=== PATIENT | female | born 1940 | race Asian ===

== ENCOUNTER 2017-01-24 10:45 | Inpatient (IN) | payer MEDICARE, OTHER ==
[~2017-01-24] VITALS: Ht 152.4 cm; Wt 57.6 kg
[~2017-01-24 10:45] MED LIST: AMLO1TAB13 PO; ATOR20TA86 PO; ESCI20TA PO; NITR.4 SL
[2017-01-24 11:00] VITALS: BP 156/92
[2017-01-24] MEDS ORDERED: HEPARIN SODIUM,PORCINE 5,000 UNITS/ML VIAL SQ SCH (12:30)
[2017-01-24] MEDS ORDERED: DOCUSATE SODIUM 283 MG/5 ML MINI-ENEMA PR PRN ×2 (12:30)
[2017-01-24 15:18] VITALS: BP 123/78
[2017-01-24 15:51] LABS: ADD UA MICROSCOPIC YES; APPEARANCE,URINE CLOUDY (CLEAR); GLUCOSE, URINE (UA) NEGATIVE (NEGATIVE); KETONES,URINE NEGATIVE (NEGATIVE); LEUKOCYTE ESTERASE ,URINE MODERATE (NEGATIVE); OCCULT BLOOD,URINE LARGE (NEGATIVE); PROTEIN,URINE TRACE (NEGATIVE)
[2017-01-24 15:56] LABS: RBC,URINE 26-50 /HPF (0-2); SQUAMOUS EPITHELIAL CELL,UR Few /LPF (None Seen); WBC,URINE 26-50 /HPF (0-5)
[2017-01-24] MEDS: HEPARIN SODIUM,PORCINE 5,000 UNITS/ML VIAL SQ SCH ×2 (16:30→23:33)
[2017-01-24] MEDS: DOCUSATE SODIUM 250 MG CAPSULE PO SCH (20:50)
[2017-01-24] MEDS: ATORVASTATIN CALCIUM 20 MG TABLET PO SCH (20:50)
[2017-01-24] MEDS ORDERED: SENNA 187 MG TABLET PO SCH (21:00)
[2017-01-24] MEDS ORDERED: DOCUSATE SODIUM 100 MG CAPSULE PO SCH (21:00)
[2017-01-24] MEDS ORDERED: TEMAZEPAM 15 MG CAPSULE PO PRN (22:00)
[2017-01-24 23:25] VITALS: BP 147/97
[2017-01-25 07:10] VITALS: BP 143/76
[2017-01-25 07:14] LABS: BASOPHILS # (AUTO) 0.01 K/uL (0.00-0.20); BASOPHILS % (AUTO) 0.1 % (0.0-2.0); EOSINOPHILS # (AUTO) 0.27 K/uL (0.00-0.70); EOSINOPHILS % (AUTO) 3.07 % (1.0-6.0); HEMATOCRIT 37.2 % (36-46); HEMOGLOBIN 11.7 g/dL (12.0-16.0); LYMPHOCYTES # (AUTO) 1.5 K/uL (1.0-4.8); LYMPHOCYTES % (AUTO) 17.1 % (22.0-44.0); MEAN CORPUSCULAR HEMOGLOBIN 21.6 pg (26.0-34.0); MEAN CORPUSCULAR HGB CONC 31.3 G/dL (31.0-37.0); MEAN CORPUSCULAR VOLUME 69 fL (80-100); MONOCYTES # (AUTO) 0.4 K/uL (0.1-1.0); MONOCYTES % (AUTO) 4.4 % (2.0-9.0); NEUTROPHILS # (AUTO) 6.6 K/uL (1.8-7.7); NEUTROPHILS % (AUTO) 75.3 % (40.0-70.0); PLATELET COUNT (AUTO) 187 K/uL (150-450); RED BLOOD CELL COUNT(AUTO) 5.41 MIL/uL (4.00-5.20); RED CELL DISTRIBUTION WIDTH 14.2 % (11.5-14.5); WHITE BLOOD COUNT (AUTO) 8.8 K/uL (4.5-11.0)
[2017-01-25 07:45] LABS: ALANINE AMINOTRANSFERASE 30 U/L (12-78); ALBUMIN 3.5 g/dL (3.4-5.0); ANION GAP 11 mmol/L (8-16); ASPARTATE AMINOTRANSFERASE 21 U/L (15-37); BILIRUBIN,TOTAL 0.4 mg/dL (0.1-1.0); CALCIUM, TOTAL 10.5 mg/dL (8.8-10.5); CARBON DIOXIDE 27 mmol/L (22-29); CHLORIDE 107 mmol/L (98-107); CREATININE 0.84 mg/dL (0.60-1.30); GLOMERULAR FILTR. RATE CALC > 60 mL/min (>60); POTASSIUM 4.1 mmol/L (3.5-5.1); SODIUM SERUM 145 mmol/L (136-145); TOTAL PROTEIN, SERUM 8.2 g/dL (6.4-8.2); UREA NITROGEN, BLOOD 9 mg/dL (7-18)
[2017-01-25] MEDS: VALSARTAN 160 MG TABLET PO SCH (08:03)
[2017-01-25] MEDS: AmLODIPine BESYLATE 10 MG TABLET PO SCH (08:03)
[2017-01-25] MEDS: DOCUSATE SODIUM 250 MG CAPSULE PO SCH ×2 (08:03→20:15)
[2017-01-25] MEDS: PANTOPRAZOLE SODIUM 40 MG DR TABLET PO SCH (08:04)
[2017-01-25] MEDS: HEPARIN SODIUM,PORCINE 5,000 UNITS/ML VIAL SQ SCH ×2 (08:04→16:13)
[2017-01-25] MEDS: ESCITALOPRAM OXALATE 20 MG TABLET PO SCH (08:04)
[2017-01-25] MEDS: ASPIRIN 81 MG CHEWABLE TABLET PO SCH (08:04)
[2017-01-25] MEDS ORDERED: PHENYLEPHRINE/SHK LV/MIN OIL/PET 57 GM OINTMENT TP PRN (11:15)
[2017-01-25 13:35] VITALS: BP 109/61
[2017-01-25] MEDS ORDERED: MECLIZINE HCL 12.5 MG TABLET PO PRN (15:00)
[2017-01-25 16:21] VITALS: BP 121/67
[2017-01-25] MEDS: SENNA 187 MG TABLET PO SCH (20:15)
[2017-01-25] MEDS: ATORVASTATIN CALCIUM 20 MG TABLET PO SCH (20:15)
[2017-01-25 23:15] VITALS: BP 136/76
[2017-01-26 07:20] VITALS: BP 142/90
[2017-01-26] MEDS: HEPARIN SODIUM,PORCINE 5,000 UNITS/ML VIAL SQ SCH ×2 (08:00)
[2017-01-26] MEDS: ASPIRIN 81 MG CHEWABLE TABLET PO SCH (09:00)
[2017-01-26] MEDS ORDERED: GADOBUTROL 1 MMOL/ML 10 ML VIAL IVP ONE (09:52)
[2017-01-26] MEDS: PANTOPRAZOLE SODIUM 40 MG DR TABLET PO SCH (10:29)
[2017-01-26] MEDS: VALSARTAN 160 MG TABLET PO SCH (10:29)
[2017-01-26] MEDS: AmLODIPine BESYLATE 10 MG TABLET PO SCH (10:29)
[2017-01-26] MEDS: DOCUSATE SODIUM 250 MG CAPSULE PO SCH ×2 (10:29→20:16)
[2017-01-26] MEDS: ESCITALOPRAM OXALATE 20 MG TABLET PO SCH (10:29)
[2017-01-26] MEDS: PHENYLEPHRINE/SHK LV/MIN OIL/PET 57 GM OINTMENT TP SCH ×2 (10:31→20:16)
[2017-01-26 15:40] VITALS: BP 118/66
[2017-01-26] MEDS: ACETAMINOPHEN 325 MG TABLET PO PRN (18:41)
[2017-01-26] MEDS: ATORVASTATIN CALCIUM 20 MG TABLET PO SCH (20:16)
[2017-01-26] MEDS: SENNA 187 MG TABLET PO SCH (20:16)
[2017-01-27 01:47] VITALS: BP 133/77
[2017-01-27 07:15] VITALS: BP 142/72
[2017-01-27] MEDS: VALSARTAN 160 MG TABLET PO SCH (07:47)
[2017-01-27] MEDS: ESCITALOPRAM OXALATE 20 MG TABLET PO SCH (07:47)
[2017-01-27] MEDS: DOCUSATE SODIUM 250 MG CAPSULE PO SCH ×2 (07:47→21:15)
[2017-01-27] MEDS: AmLODIPine BESYLATE 10 MG TABLET PO SCH (07:48)
[2017-01-27] MEDS: PANTOPRAZOLE SODIUM 40 MG DR TABLET PO SCH (07:48)
[2017-01-27] MEDS: PHENYLEPHRINE/SHK LV/MIN OIL/PET 57 GM OINTMENT TP SCH ×2 (07:48→21:17)
[2017-01-27] MEDS: ACETAMINOPHEN 325 MG TABLET PO PRN ×2 (09:49→14:33)
[2017-01-27 15:33] VITALS: BP 117/71
[2017-01-27] MEDS ORDERED: 0.9% SODIUM CHLORIDE 10 ML SYRINGE IVP SCH (16:00)
[2017-01-27] MEDS: SENNA 187 MG TABLET PO SCH (21:15)
[2017-01-27] MEDS: ATORVASTATIN CALCIUM 20 MG TABLET PO SCH (21:15)
[2017-01-28 00:54] VITALS: BP 136/81
[2017-01-28 07:50] VITALS: BP 116/68
[2017-01-28] MEDS: LEVOFLOXACIN 500 MG TABLET PO SCH (08:10)
[2017-01-28] MEDS: PANTOPRAZOLE SODIUM 40 MG DR TABLET PO SCH (08:10)
[2017-01-28] MEDS: ESCITALOPRAM OXALATE 20 MG TABLET PO SCH (08:10)
[2017-01-28] MEDS: DOCUSATE SODIUM 250 MG CAPSULE PO SCH ×2 (08:10→20:25)
[2017-01-28] MEDS: AmLODIPine BESYLATE 10 MG TABLET PO SCH (08:11)
[2017-01-28] MEDS: VALSARTAN 160 MG TABLET PO SCH (08:11)
[2017-01-28] MEDS: PHENYLEPHRINE/SHK LV/MIN OIL/PET 57 GM OINTMENT TP SCH ×2 (11:33→20:26)
[2017-01-28 13:38] VITALS: BP 114/69
[2017-01-28] MEDS: ACETAMINOPHEN 325 MG TABLET PO PRN (13:38)
[2017-01-28 15:03] VITALS: BP 116/70
[2017-01-28] MEDS: ATORVASTATIN CALCIUM 20 MG TABLET PO SCH (20:25)
[2017-01-28] MEDS: SENNA 187 MG TABLET PO SCH (20:25)
[2017-01-29] VITALS: BP 133/79
[2017-01-29 07:15] LABS: BASOPHILS # (AUTO) 0.01 K/uL (0.00-0.20); BASOPHILS % (AUTO) 0.2 % (0.0-2.0); EOSINOPHILS # (AUTO) 0.25 K/uL (0.00-0.70); EOSINOPHILS % (AUTO) 6.19 % (1.0-6.0); HEMATOCRIT 35.4 % (36-46); LYMPHOCYTES # (AUTO) 1.2 K/uL (1.0-4.8); LYMPHOCYTES % (AUTO) 30.5 % (22.0-44.0); MEAN CORPUSCULAR HEMOGLOBIN 21.5 pg (26.0-34.0); MEAN CORPUSCULAR HGB CONC 31.1 G/dL (31.0-37.0); MEAN CORPUSCULAR VOLUME 69 fL (80-100); MONOCYTES # (AUTO) 0.4 K/uL (0.1-1.0); MONOCYTES % (AUTO) 10.8 % (2.0-9.0); NEUTROPHILS # (AUTO) 2.1 K/uL (1.8-7.7); NEUTROPHILS % (AUTO) 52.3 % (40.0-70.0); PLATELET COUNT (AUTO) 178 K/uL (150-450); RED BLOOD CELL COUNT(AUTO) 5.13 MIL/uL (4.00-5.20); RED CELL DISTRIBUTION WIDTH 14.6 % (11.5-14.5)
[2017-01-29 07:38] VITALS: BP 138/78
[2017-01-29] MEDS: PANTOPRAZOLE SODIUM 40 MG DR TABLET PO SCH (08:00)
[2017-01-29] MEDS: DOCUSATE SODIUM 250 MG CAPSULE PO SCH ×2 (08:00→21:28)
[2017-01-29] MEDS: AmLODIPine BESYLATE 10 MG TABLET PO SCH (08:00)
[2017-01-29] MEDS: ESCITALOPRAM OXALATE 20 MG TABLET PO SCH (08:00)
[2017-01-29] MEDS: LEVOFLOXACIN 500 MG TABLET PO SCH (08:00)
[2017-01-29] MEDS: VALSARTAN 160 MG TABLET PO SCH (08:00)
[2017-01-29] MEDS: PHENYLEPHRINE/SHK LV/MIN OIL/PET 57 GM OINTMENT TP SCH ×2 (08:01→21:28)
[2017-01-29 10:19] LABS: RBC MORPHOLOGY COMMENT ABNORMAL RBC MORPH
[2017-01-29] MEDS: ASPIRIN 81 MG CHEWABLE TABLET PO SCH (13:46)
[2017-01-29 15:58] VITALS: BP 132/75
[2017-01-29] MEDS: ACETAMINOPHEN 325 MG TABLET PO PRN (18:39)
[2017-01-29] MEDS: SENNA 187 MG TABLET PO SCH (21:27)
[2017-01-29] MEDS: LACTOBACILLUS ACIDOPHILUS/BULGARICUS TABLET PO SCH (21:28)
[2017-01-29] MEDS: ATORVASTATIN CALCIUM 20 MG TABLET PO SCH (21:28)
[2017-01-30] VITALS: BP 127/78
[2017-01-30 07:00] VITALS: BP 146/79
[2017-01-30] MEDS: LEVOFLOXACIN 250 MG TABLET PO SCH (08:08)
[2017-01-30] MEDS: PANTOPRAZOLE SODIUM 40 MG DR TABLET PO SCH (08:08)
[2017-01-30] MEDS: VALSARTAN 160 MG TABLET PO SCH (08:08)
[2017-01-30] MEDS: LACTOBACILLUS ACIDOPHILUS/BULGARICUS TABLET PO SCH ×2 (08:08→21:03)
[2017-01-30] MEDS: ASPIRIN 81 MG CHEWABLE TABLET PO SCH (08:08)
[2017-01-30] MEDS: DOCUSATE SODIUM 250 MG CAPSULE PO SCH ×2 (08:08→21:03)
[2017-01-30] MEDS: MULTIVITAMINS WITH MINERALS, THERAPEUTIC TABLET PO SCH (08:08)
[2017-01-30] MEDS: ESCITALOPRAM OXALATE 20 MG TABLET PO SCH (08:09)
[2017-01-30] MEDS: AmLODIPine BESYLATE 10 MG TABLET PO SCH (08:09)
[2017-01-30] MEDS: ACETAMINOPHEN 325 MG TABLET PO PRN (09:54)
[2017-01-30 15:02] VITALS: BP 135/81
[2017-01-30] MEDS: CHOLECALCIFEROL (VIT D3) 1,000 UNITS TABLET PO SCH (15:14)
[2017-01-30] MEDS: SENNA 187 MG TABLET PO SCH (21:03)
[2017-01-30] MEDS: ATORVASTATIN CALCIUM 20 MG TABLET PO SCH (21:03)
[2017-01-31 02:35] VITALS: BP 138/78
[2017-01-31] MEDS: ACETAMINOPHEN 325 MG TABLET PO PRN (04:00)
[2017-01-31 07:01] VITALS: BP 119/82
[2017-01-31] MEDS: CHOLECALCIFEROL (VIT D3) 1,000 UNITS TABLET PO SCH (07:28)
[2017-01-31] MEDS: LACTOBACILLUS ACIDOPHILUS/BULGARICUS TABLET PO SCH ×2 (07:28→20:23)
[2017-01-31] MEDS: PANTOPRAZOLE SODIUM 40 MG DR TABLET PO SCH (07:29)
[2017-01-31] MEDS: ASPIRIN 81 MG CHEWABLE TABLET PO SCH (07:29)
[2017-01-31] MEDS: VALSARTAN 160 MG TABLET PO SCH (07:29)
[2017-01-31] MEDS: AmLODIPine BESYLATE 10 MG TABLET PO SCH (07:29)
[2017-01-31] MEDS: DOCUSATE SODIUM 250 MG CAPSULE PO SCH ×2 (07:29→20:23)
[2017-01-31] MEDS: ESCITALOPRAM OXALATE 20 MG TABLET PO SCH (07:29)
[2017-01-31] MEDS: MULTIVITAMINS WITH MINERALS, THERAPEUTIC TABLET PO SCH (07:29)
[2017-01-31] MEDS: LEVOFLOXACIN 250 MG TABLET PO SCH (07:29)
[2017-01-31 15:09] VITALS: BP 135/68
[2017-01-31] MEDS: SENNA 187 MG TABLET PO SCH (20:23)
[2017-01-31] MEDS: ATORVASTATIN CALCIUM 20 MG TABLET PO SCH (20:23)
[2017-02-01 04:00] VITALS: BP 148/75
[2017-02-01 07:30] VITALS: BP 154/84
[2017-02-01] MEDS: CHOLECALCIFEROL (VIT D3) 1,000 UNITS TABLET PO SCH (08:44)
[2017-02-01] MEDS: LEVOFLOXACIN 250 MG TABLET PO SCH (08:44)
[2017-02-01] MEDS: DOCUSATE SODIUM 250 MG CAPSULE PO SCH ×2 (08:44→20:01)
[2017-02-01] MEDS: PANTOPRAZOLE SODIUM 40 MG DR TABLET PO SCH (08:44)
[2017-02-01] MEDS: ESCITALOPRAM OXALATE 20 MG TABLET PO SCH (08:44)
[2017-02-01] MEDS: LACTOBACILLUS ACIDOPHILUS/BULGARICUS TABLET PO SCH ×2 (08:44→20:00)
[2017-02-01] MEDS: MULTIVITAMINS WITH MINERALS, THERAPEUTIC TABLET PO SCH (08:44)
[2017-02-01] MEDS: AmLODIPine BESYLATE 10 MG TABLET PO SCH (08:44)
[2017-02-01] MEDS: VALSARTAN 160 MG TABLET PO SCH (08:44)
[2017-02-01] MEDS: ASPIRIN 81 MG CHEWABLE TABLET PO SCH (08:45)
[2017-02-01] MEDS: ACETAMINOPHEN 325 MG TABLET PO PRN (09:32)
[2017-02-01 10:32] VITALS: BP 143/85
[2017-02-01 15:15] VITALS: BP 117/75
[2017-02-01] MEDS: SENNA 187 MG TABLET PO SCH (20:01)
[2017-02-01] MEDS: ATORVASTATIN CALCIUM 20 MG TABLET PO SCH (20:01)
[2017-02-02 00:22] VITALS: BP 145/79
[2017-02-02 07:58] VITALS: BP 143/74
[2017-02-02] MEDS: MULTIVITAMINS WITH MINERALS, THERAPEUTIC TABLET PO SCH (08:53)
[2017-02-02] MEDS: CHOLECALCIFEROL (VIT D3) 1,000 UNITS TABLET PO SCH (08:53)
[2017-02-02] MEDS: ESCITALOPRAM OXALATE 20 MG TABLET PO SCH (08:53)
[2017-02-02] MEDS: LEVOFLOXACIN 250 MG TABLET PO SCH (08:53)
[2017-02-02] MEDS: DOCUSATE SODIUM 250 MG CAPSULE PO SCH ×2 (08:53→20:31)
[2017-02-02] MEDS: PANTOPRAZOLE SODIUM 40 MG DR TABLET PO SCH (08:54)
[2017-02-02] MEDS: ASPIRIN 81 MG CHEWABLE TABLET PO SCH (08:54)
[2017-02-02] MEDS: AmLODIPine BESYLATE 10 MG TABLET PO SCH (08:54)
[2017-02-02] MEDS: LACTOBACILLUS ACIDOPHILUS/BULGARICUS TABLET PO SCH ×2 (08:54→20:31)
[2017-02-02] MEDS: VALSARTAN 160 MG TABLET PO SCH (08:54)
[2017-02-02 15:10] VITALS: BP 126/85
[2017-02-02] MEDS: ATORVASTATIN CALCIUM 20 MG TABLET PO SCH (20:31)
[2017-02-02] MEDS: SENNA 187 MG TABLET PO SCH (20:31)
[2017-02-02 23:58] VITALS: BP 132/77
[2017-02-03 07:00] VITALS: BP 134/81
[2017-02-03] MEDS: ASPIRIN 81 MG CHEWABLE TABLET PO SCH (08:49)
[2017-02-03] MEDS: MULTIVITAMINS WITH MINERALS, THERAPEUTIC TABLET PO SCH (08:50)
[2017-02-03] MEDS: ESCITALOPRAM OXALATE 20 MG TABLET PO SCH (08:50)
[2017-02-03] MEDS: DOCUSATE SODIUM 250 MG CAPSULE PO SCH ×2 (08:50→20:47)
[2017-02-03] MEDS: LACTOBACILLUS ACIDOPHILUS/BULGARICUS TABLET PO SCH ×2 (08:50→20:48)
[2017-02-03] MEDS: PANTOPRAZOLE SODIUM 40 MG DR TABLET PO SCH (08:50)
[2017-02-03] MEDS: VALSARTAN 160 MG TABLET PO SCH (08:50)
[2017-02-03] MEDS: AmLODIPine BESYLATE 10 MG TABLET PO SCH (08:50)
[2017-02-03] MEDS: CHOLECALCIFEROL (VIT D3) 1,000 UNITS TABLET PO SCH (08:50)
[2017-02-03 15:02] VITALS: BP 126/65
[2017-02-03] MEDS: ATORVASTATIN CALCIUM 20 MG TABLET PO SCH (20:47)
[2017-02-03] MEDS: SENNA 187 MG TABLET PO SCH (20:47)
[2017-02-04 01:38] VITALS: BP 130/77
[2017-02-04] MEDS: ACETAMINOPHEN 325 MG TABLET PO PRN ×2 (01:38→09:06)
[2017-02-04 07:22] VITALS: BP 144/74
[2017-02-04] MEDS: MULTIVITAMINS WITH MINERALS, THERAPEUTIC TABLET PO SCH (07:38)
[2017-02-04] MEDS: PANTOPRAZOLE SODIUM 40 MG DR TABLET PO SCH (07:38)
[2017-02-04] MEDS: CHOLECALCIFEROL (VIT D3) 1,000 UNITS TABLET PO SCH (07:38)
[2017-02-04] MEDS: ESCITALOPRAM OXALATE 20 MG TABLET PO SCH (07:38)
[2017-02-04] MEDS: AmLODIPine BESYLATE 10 MG TABLET PO SCH (07:38)
[2017-02-04] MEDS: VALSARTAN 160 MG TABLET PO SCH (07:38)
[2017-02-04] MEDS: LACTOBACILLUS ACIDOPHILUS/BULGARICUS TABLET PO SCH ×2 (07:38→20:17)
[2017-02-04] MEDS: DOCUSATE SODIUM 250 MG CAPSULE PO SCH ×2 (07:38→20:17)
[2017-02-04] MEDS: ASPIRIN 81 MG CHEWABLE TABLET PO SCH (07:38)
[2017-02-04 16:10] VITALS: BP 116/70
[2017-02-04] MEDS: ATORVASTATIN CALCIUM 20 MG TABLET PO SCH (20:16)
[2017-02-04] MEDS: SENNA 187 MG TABLET PO SCH (20:17)
[2017-02-04 23:25] VITALS: BP 137/67
[2017-02-05 07:30] VITALS: BP 134/77
[2017-02-05 08:22] VITALS: BP 134/77
[2017-02-05] MEDS: ACETAMINOPHEN 325 MG TABLET PO PRN (08:24)
[2017-02-05] MEDS: CHOLECALCIFEROL (VIT D3) 1,000 UNITS TABLET PO SCH (08:25)
[2017-02-05] MEDS: MULTIVITAMINS WITH MINERALS, THERAPEUTIC TABLET PO SCH (08:26)
[2017-02-05] MEDS: PANTOPRAZOLE SODIUM 40 MG DR TABLET PO SCH (08:26)
[2017-02-05] MEDS: ASPIRIN 81 MG CHEWABLE TABLET PO SCH (08:26)
[2017-02-05] MEDS: DOCUSATE SODIUM 250 MG CAPSULE PO SCH ×2 (08:26→20:32)
[2017-02-05] MEDS: ESCITALOPRAM OXALATE 20 MG TABLET PO SCH (08:27)
[2017-02-05] MEDS: AmLODIPine BESYLATE 10 MG TABLET PO SCH (08:29)
[2017-02-05] MEDS: VALSARTAN 160 MG TABLET PO SCH (08:29)
[2017-02-05] MEDS: LACTOBACILLUS ACIDOPHILUS/BULGARICUS TABLET PO SCH ×2 (08:30→20:32)
[2017-02-05 15:05] VITALS: BP 125/76
[2017-02-05] MEDS: ATORVASTATIN CALCIUM 20 MG TABLET PO SCH (20:32)
[2017-02-05] MEDS: SENNA 187 MG TABLET PO SCH (20:32)
[2017-02-06 01:47] VITALS: BP 148/74
[2017-02-06 07:33] VITALS: BP 138/71
[2017-02-06] MEDS: ASPIRIN 81 MG CHEWABLE TABLET PO SCH (08:03)
[2017-02-06] MEDS: DOCUSATE SODIUM 250 MG CAPSULE PO SCH ×2 (08:03→20:23)
[2017-02-06] MEDS: VALSARTAN 160 MG TABLET PO SCH (08:04)
[2017-02-06] MEDS: LACTOBACILLUS ACIDOPHILUS/BULGARICUS TABLET PO SCH ×2 (08:05→20:24)
[2017-02-06] MEDS: MULTIVITAMINS WITH MINERALS, THERAPEUTIC TABLET PO SCH (08:06)
[2017-02-06] MEDS: AmLODIPine BESYLATE 10 MG TABLET PO SCH (08:06)
[2017-02-06] MEDS: PANTOPRAZOLE SODIUM 40 MG DR TABLET PO SCH (08:06)
[2017-02-06] MEDS: ESCITALOPRAM OXALATE 20 MG TABLET PO SCH (08:06)
[2017-02-06] MEDS: CHOLECALCIFEROL (VIT D3) 1,000 UNITS TABLET PO SCH (08:07)
[2017-02-06 15:14] LABS: APPEARANCE,URINE CLEAR (CLEAR); GLUCOSE, URINE (UA) NEGATIVE (NEGATIVE); KETONES,URINE NEGATIVE (NEGATIVE); LEUKOCYTE ESTERASE ,URINE NEGATIVE (NEGATIVE); OCCULT BLOOD,URINE NEGATIVE (NEGATIVE); PH,URINE 6.5 (5.0-8.0); PROTEIN,URINE NEGATIVE (NEGATIVE)
[2017-02-06 15:41] LABS: SQUAMOUS EPITHELIAL CELL,UR Few /LPF (None Seen)
[2017-02-06 15:42] LABS: RBC,URINE 0-2 /HPF (0-2)
[2017-02-06 15:43] LABS: TRANSITIONAL EPI CELLS,URINE Few /LPF (None Seen)
[2017-02-06 15:59] VITALS: BP 129/72
[2017-02-06] MEDS: ATORVASTATIN CALCIUM 20 MG TABLET PO SCH (20:23)
[2017-02-06] MEDS: SENNA 187 MG TABLET PO SCH (20:23)
[2017-02-06] MEDS: GuaiFENesin/D-METHORPHAN [SUGAR-FREE] 200-20MG/10 ML SYRUP UDCUP PO PRN (21:49)
[2017-02-07 04:00] VITALS: BP 135/78
[2017-02-07] MEDS: GuaiFENesin/D-METHORPHAN [SUGAR-FREE] 200-20MG/10 ML SYRUP UDCUP PO PRN ×3 (04:26→20:18)
[2017-02-07] MEDS: DOCUSATE SODIUM 250 MG CAPSULE PO SCH ×3 (07:49→20:18)
[2017-02-07] MEDS: LACTOBACILLUS ACIDOPHILUS/BULGARICUS TABLET PO SCH ×2 (07:49→20:18)
[2017-02-07] MEDS: VALSARTAN 160 MG TABLET PO SCH (07:49)
[2017-02-07] MEDS: ESCITALOPRAM OXALATE 20 MG TABLET PO SCH (07:49)
[2017-02-07] MEDS: CHOLECALCIFEROL (VIT D3) 1,000 UNITS TABLET PO SCH (07:49)
[2017-02-07] MEDS: AmLODIPine BESYLATE 10 MG TABLET PO SCH (07:49)
[2017-02-07] MEDS: MULTIVITAMINS WITH MINERALS, THERAPEUTIC TABLET PO SCH (07:49)
[2017-02-07] MEDS: PANTOPRAZOLE SODIUM 40 MG DR TABLET PO SCH (07:50)
[2017-02-07] MEDS: ASPIRIN 81 MG CHEWABLE TABLET PO SCH (07:50)
[2017-02-07 07:51] VITALS: BP 147/92
[2017-02-07] MEDS: DICLOFENAC SODIUM 1% 100 GM GEL [2GM] TP PRN (07:51)
[2017-02-07 16:35] VITALS: BP 116/76
[2017-02-07] MEDS: SENNA 187 MG TABLET PO SCH (20:18)
[2017-02-07] MEDS: ACETAMINOPHEN 325 MG TABLET PO PRN (20:18)
[2017-02-07] MEDS: ATORVASTATIN CALCIUM 20 MG TABLET PO SCH (20:18)
[2017-02-08 01:00] VITALS: BP 145/57
[2017-02-08] MEDS: GuaiFENesin/D-METHORPHAN [SUGAR-FREE] 200-20MG/10 ML SYRUP UDCUP PO PRN ×2 (01:34→08:42)
[2017-02-08 07:20] VITALS: BP 140/84
[2017-02-08] MEDS: ACETAMINOPHEN 325 MG TABLET PO PRN (07:27)
[2017-02-08 08:20] VITALS: BP 127/64
[2017-02-08] MEDS: ESCITALOPRAM OXALATE 20 MG TABLET PO SCH (08:43)
[2017-02-08] MEDS: DOCUSATE SODIUM 250 MG CAPSULE PO SCH ×2 (08:44→20:16)
[2017-02-08] MEDS: AmLODIPine BESYLATE 10 MG TABLET PO SCH (08:44)
[2017-02-08] MEDS: PANTOPRAZOLE SODIUM 40 MG DR TABLET PO SCH (08:44)
[2017-02-08] MEDS: MULTIVITAMINS WITH MINERALS, THERAPEUTIC TABLET PO SCH (08:44)
[2017-02-08] MEDS: LACTOBACILLUS ACIDOPHILUS/BULGARICUS TABLET PO SCH ×2 (08:45→20:16)
[2017-02-08] MEDS: VALSARTAN 160 MG TABLET PO SCH (08:45)
[2017-02-08] MEDS: CHOLECALCIFEROL (VIT D3) 1,000 UNITS TABLET PO SCH (08:45)
[2017-02-08] MEDS: ASPIRIN 81 MG CHEWABLE TABLET PO SCH (08:45)
[2017-02-08 16:25] VITALS: BP 139/86
[2017-02-08] MEDS: GuaiFENesin/D-METHORPHAN [SUGAR-FREE] 200-20MG/10 ML SYRUP UDCUP PO SCH ×2 (17:02→20:16)
[2017-02-08] MEDS: SENNA 187 MG TABLET PO SCH (20:16)
[2017-02-08] MEDS: ATORVASTATIN CALCIUM 20 MG TABLET PO SCH (20:16)
[2017-02-08] MEDS ORDERED: PHEN28OI6 TP (22:41)
[2017-02-08] MEDS ORDERED: VALS160T2 PO (22:41)
[2017-02-08] MEDS ORDERED: CHOL200016 PO (22:41)
[2017-02-08] MEDS ORDERED: MV-M1TAB2 PO (22:41)
[2017-02-08] MEDS ORDERED: DICL2100G TP (22:41)
[2017-02-08] MEDS ORDERED: DOCU250C91 PO (22:41)
[2017-02-08] MEDS ORDERED: MECL12.585 PO (22:41)
[2017-02-08] MEDS ORDERED: ASPI81TA39 PO (22:41)
[2017-02-08] MEDS ORDERED: AMLO-512 PO (22:41)
[2017-02-08] MEDS ORDERED: ATOR20TA86 PO (22:41)
[2017-02-08] MEDS ORDERED: ESCI10TA PO (22:41)
[2017-02-08] MEDS ORDERED: PANT40TA25 PO (22:41)
[2017-02-08] MEDS ORDERED: ACID1TAB8 PO (22:41)
[2017-02-08] MEDS ORDERED: DEXT15SY3 PO (22:41)
[2017-02-09 00:15] VITALS: BP 134/82
[2017-02-09 07:13] VITALS: BP 121/69
[2017-02-09] MEDS: CHOLECALCIFEROL (VIT D3) 1,000 UNITS TABLET PO SCH (08:10)
[2017-02-09] MEDS: GuaiFENesin/D-METHORPHAN [SUGAR-FREE] 200-20MG/10 ML SYRUP UDCUP PO SCH ×3 (08:10→20:27)
[2017-02-09] MEDS: LACTOBACILLUS ACIDOPHILUS/BULGARICUS TABLET PO SCH ×2 (08:10→20:28)
[2017-02-09] MEDS: MULTIVITAMINS WITH MINERALS, THERAPEUTIC TABLET PO SCH (08:10)
[2017-02-09] MEDS: AmLODIPine BESYLATE 10 MG TABLET PO SCH (08:11)
[2017-02-09] MEDS: DOCUSATE SODIUM 250 MG CAPSULE PO SCH ×2 (08:11→20:28)
[2017-02-09] MEDS: VALSARTAN 160 MG TABLET PO SCH (08:11)
[2017-02-09] MEDS: ASPIRIN 81 MG CHEWABLE TABLET PO SCH (08:11)
[2017-02-09] MEDS: ESCITALOPRAM OXALATE 20 MG TABLET PO SCH (08:11)
[2017-02-09] MEDS: DICLOFENAC SODIUM 1% 100 GM GEL [2GM] TP PRN (08:11)
[2017-02-09] MEDS: PANTOPRAZOLE SODIUM 40 MG DR TABLET PO SCH (08:11)
[2017-02-09 15:20] VITALS: BP 113/76
[2017-02-09] MEDS: SENNA 187 MG TABLET PO SCH (20:28)
[2017-02-09] MEDS: ATORVASTATIN CALCIUM 20 MG TABLET PO SCH (20:28)
[2017-02-09 23:50] VITALS: BP 126/77
[2017-02-10] MEDS: ACETAMINOPHEN 325 MG TABLET PO PRN (05:08)
[2017-02-10 07:45] VITALS: BP 124/82
[2017-02-10] MEDS: GuaiFENesin/D-METHORPHAN [SUGAR-FREE] 200-20MG/10 ML SYRUP UDCUP PO SCH (08:05)
[2017-02-10] MEDS: PANTOPRAZOLE SODIUM 40 MG DR TABLET PO SCH (08:05)
[2017-02-10] MEDS: LACTOBACILLUS ACIDOPHILUS/BULGARICUS TABLET PO SCH (08:05)
[2017-02-10] MEDS: ESCITALOPRAM OXALATE 20 MG TABLET PO SCH (08:06)
[2017-02-10] MEDS: AmLODIPine BESYLATE 10 MG TABLET PO SCH (08:06)
[2017-02-10] MEDS: CHOLECALCIFEROL (VIT D3) 1,000 UNITS TABLET PO SCH (08:06)
[2017-02-10] MEDS: DOCUSATE SODIUM 250 MG CAPSULE PO SCH (08:06)
[2017-02-10] MEDS: MULTIVITAMINS WITH MINERALS, THERAPEUTIC TABLET PO SCH (08:06)
[2017-02-10] MEDS: ASPIRIN 81 MG CHEWABLE TABLET PO SCH (08:06)
[2017-02-10] MEDS: VALSARTAN 160 MG TABLET PO SCH (08:07)
[2017-02-10] MEDS ORDERED: GUAIFDM PO (11:14)
== END 2017-02-10 14:28 | disposition home or self-care (01) | DRG 948 ==
LOC: 2WR 10:45
DX: R53.81 Other malaise (principal); N39.0 Urinary tract infection, site not specified; B19.10 Unspecified viral hepatitis B without hepatic coma; S09.90XA Unspecified injury of head, initial encounter; I10 Essential (primary) hypertension; S02.2XXA Fracture of nasal bones, initial encounter for closed fracture; D56.9 Thalassemia, unspecified; R42 Dizziness and giddiness; D72.819 Decreased white blood cell count, unspecified; W18.30XA Fall on same level, unspecified, initial encounter; D50.9 Iron deficiency anemia, unspecified; R05 Cough; E78.00 Pure hypercholesterolemia, unspecified; R26.9 Unspecified abnormalities of gait and mobility; R63.0 Anorexia; E78.5 Hyperlipidemia, unspecified; H54.7 Unspecified visual loss; R29.6 Repeated falls; Z80.9 Family history of malignant neoplasm, unspecified; F43.22 Adjustment disorder with anxiety; R51 Headache; R55 Syncope and collapse; Z88.8 Allergy status to other drugs, medicaments and biological substances; Z68.24 Body mass index [BMI] 24.0-24.9, adult; Y93.89 Activity, other specified; Y92.89 Other specified places as the place of occurrence of the external cause; Y99.8 Other external cause status
CPT/HCPCS: 70553; 71020; 82306; 87081; 87086; 92507; 92523; 97110; 97112; 97116; 97162; 97166; 97530; 97535; 99366; A9585; J1644

== ENCOUNTER 2018-03-10 12:04 | Inpatient (IN) | payer MEDICARE, OTHER ==
[~2018-03-10] VITALS: Ht 157.5 cm; Wt 60.2 kg
[~2018-03-10 12:04] MED LIST changes: +ACID1TAB8 PO; +AMLO-512 PO; -AMLO1TAB13 PO; +ASPI81TA39 PO; +CHOL200059 PO; +DEXT15SY3 PO; +DICL2100G TP; +DOCU250C91 PO; +ESCI10TA PO; -ESCI20TA PO; +GUAIFDM PO; +MV-M1TAB2 PO; -NITR.4 SL; +PANT40TA25 PO; +VALS160T2 PO
[2018-03-10 12:29] LABS: BASOPHILS % (AUTO) 0.1 % (0.0-2.0); EOSINOPHILS % (AUTO) 0 % (1.0-6.0); HEMOGLOBIN 11.5 g/dL (12.0-16.0); LYMPHOCYTES # (AUTO) 1.6 K/uL (1.0-4.8); LYMPHOCYTES % (AUTO) 13.8 % (22.0-44.0); MEAN CORPUSCULAR HEMOGLOBIN 21.1 pg (26.0-34.0); MEAN CORPUSCULAR VOLUME 68 fL (80-100); MONOCYTES # (AUTO) 0.7 K/uL (0.1-1.0); MONOCYTES % (AUTO) 6.5 % (2.0-9.0); NEUTROPHILS # (AUTO) 9.1 K/uL (1.8-7.7); NEUTROPHILS % (AUTO) 79.6 % (40.0-70.0); PLATELET COUNT (AUTO) 167 K/uL (150-450); RED BLOOD CELL COUNT(AUTO) 5.44 MIL/uL (4.00-5.20); RED CELL DISTRIBUTION WIDTH 14.5 % (11.5-14.5)
[2018-03-10 12:38] LABS: POTASSIUM 3.8 mmol/L (3.5-5.1)
[2018-03-10 12:39] LABS: CREATININE 0.91 mg/dL (0.60-1.30); PROTHROMBIN TIME 10.1 SEC (9.4-11.6)
[2018-03-10 12:43] LABS: ALBUMIN 3.8 g/dL (3.4-5.0); BILIRUBIN,TOTAL 0.7 mg/dL (0.1-1.0); TOTAL PROTEIN, SERUM 8.5 g/dL (6.4-8.2)
[2018-03-10] MEDS ORDERED: NICARDipine 20 MG/DEXT,ISO-OSM 200 ML IV PRN (12:48)
[2018-03-10] MEDS ORDERED: ONDANSETRON HCL 4 MG/2 ML VIAL IVP PRN ×2 (13:00→13:45)
[2018-03-10] MEDS ORDERED: 0.9% SODIUM CHLORIDE 10 ML SYRINGE IVP PRN (13:00)
[2018-03-10] MEDS ORDERED: SODIUM CHLORIDE 0.9% 1,000 ML IV ONE ×2 (13:00→14:00)
[2018-03-10] MEDS ORDERED: BISACODYL 10 MG RECTAL RECTAL SUPPOSITORY PR PRN (13:45)
[2018-03-10] MEDS ORDERED: HYDROCODONE/ACETAMINOPHEN 5-325 MG TABLET PO PRN (13:45)
[2018-03-10] MEDS ORDERED: MAGNESIUM HYDROXIDE SUSPENSION 30 ML UDCUP PO PRN (13:45)
[2018-03-10] MEDS ORDERED: ZOLPIDEM TARTRATE 5 MG TABLET PO PRN (13:45)
[2018-03-10] MEDS ORDERED: ACETAMINOPHEN 325 MG TABLET PO PRN (13:45)
[2018-03-10] MEDS ORDERED: MORPHINE SULFATE 4 MG/ML SYRINGE IVP PRN (13:45)
[2018-03-10 14:56] LABS: AMPHET/METH SCREEN,URINE NEGATIVE (NEGATIVE); BARBITURATE SCREEN, URINE NEGATIVE (NEGATIVE); BENZODIAZEPINES SCREEN,URINE NEGATIVE (NEGATIVE); CANNABINOID SCREEN,URINE NEGATIVE (NEGATIVE); COCAINE SCREEN,URINE NEGATIVE (NEGATIVE); METHADONE SCREEN, URINE NEGATIVE (NEGATIVE); OPIATE SCREEN,URINE NEGATIVE (NEGATIVE); PHENCYCLIDINE SCREEN,URINE NEGATIVE (NEGATIVE)
[2018-03-10 15:04] LABS: APPEARANCE,URINE CLEAR (CLEAR); BILIRUBIN,URINE NEGATIVE (NEGATIVE); GLUCOSE, URINE (UA) NEGATIVE (NEGATIVE); KETONES,URINE NEGATIVE (NEGATIVE); LEUKOCYTE ESTERASE ,URINE NEGATIVE (NEGATIVE); NITRATE,URINE NEGATIVE (NEGATIVE); OCCULT BLOOD,URINE SMALL (NEGATIVE); PROTEIN,URINE NEGATIVE (NEGATIVE); UROBILINOGEN,URINE 0.2 mg/dL (<=1.0)
[2018-03-10 15:14] LABS: BACTERIA,URINE Rare /HPF (None Seen); SQUAMOUS EPITHELIAL CELL,UR Few /LPF (None Seen); WBC,URINE 0-2 /HPF (0-5)
[2018-03-10 18:00] VITALS: BP 128/88
[2018-03-10 20:00] VITALS: BP 147/92
[2018-03-10] MEDS: ATORVASTATIN CALCIUM 20 MG TABLET PO SCH (20:55)
[2018-03-10] MEDS: DOCUSATE SODIUM 100 MG CAPSULE PO SCH (20:55)
[2018-03-10] MEDS: HydrALAZINE HCL 20 MG/ML VIAL IVP PRN (21:39)
[2018-03-11] VITALS: BP 129/72
[2018-03-11 04:00] VITALS: BP 157/58
[2018-03-11] MEDS ORDERED: SODIUM CHLORIDE 0.9% 250 ML IV ONE ×2 (04:35→06:17)
[2018-03-11 05:03] LABS: BASOPHILS % (AUTO) 0.2 % (0.0-2.0); EOSINOPHILS % (AUTO) 0.3 % (1.0-6.0); HEMATOCRIT 33.9 % (36-46); HEMOGLOBIN 10.7 g/dL (12.0-16.0); LYMPHOCYTES # (AUTO) 1.2 K/uL (1.0-4.8); LYMPHOCYTES % (AUTO) 12.8 % (22.0-44.0); MEAN CORPUSCULAR HEMOGLOBIN 21.2 pg (26.0-34.0); MEAN CORPUSCULAR HGB CONC 31.7 G/dL (31.0-37.0); MEAN CORPUSCULAR VOLUME 67 fL (80-100); MONOCYTES % (AUTO) 10.1 % (2.0-9.0); NEUTROPHILS # (AUTO) 7.5 K/uL (1.8-7.7); NEUTROPHILS % (AUTO) 76.6 % (40.0-70.0); PLATELET COUNT (AUTO) 155 K/uL (150-450); RED BLOOD CELL COUNT(AUTO) 5.08 MIL/uL (4.00-5.20); RED CELL DISTRIBUTION WIDTH 13.9 % (11.5-14.5)
[2018-03-11 05:11] LABS: ALANINE AMINOTRANSFERASE 30 U/L (12-78); ALBUMIN 3.3 g/dL (3.4-5.0); ALKALINE PHOSPHATASE 56 U/L (46-116); ANION GAP 7 mmol/L (8-16); ASPARTATE AMINOTRANSFERASE 35 U/L (15-37); BILIRUBIN,TOTAL 0.7 mg/dL (0.1-1.0); CALCIUM, TOTAL 9.6 mg/dL (8.8-10.5); CARBON DIOXIDE 25 mmol/L (22-29); CHLORIDE 108 mmol/L (98-107); CREATININE 0.78 mg/dL (0.60-1.30); GLUCOSE,RANDOM 101 mg/dL (70-110); SODIUM SERUM 140 mmol/L (136-145); TOTAL PROTEIN, SERUM 7.3 g/dL (6.4-8.2); UREA NITROGEN, BLOOD 11 mg/dL (7-18)
[2018-03-11 05:32] LABS: GLOMERULAR FILTR. RATE CALC > 60 mL/min (>60); POTASSIUM 2.5 mmol/L (3.5-5.1)
[2018-03-11] MEDS ORDERED: POTASSIUM CHL 10 MEQ/WATER 50 ML IV PRN ×3 (06:15)
[2018-03-11] MEDS: POTASSIUM CHL 10 MEQ/WATER 50 ML IV PRN ×7 (06:15→19:01)
[2018-03-11 08:00] VITALS: BP 142/87
[2018-03-11] MEDS ORDERED: GADOBUTROL 1 MMOL/ML 10 ML VIAL IVP ONE (08:18)
[2018-03-11] MEDS: PANTOPRAZOLE SODIUM 40 MG DR TABLET PO SCH (09:00)
[2018-03-11] MEDS: VALSARTAN 160 MG TABLET PO SCH (09:00)
[2018-03-11] MEDS: CHOLECALCIFEROL (VIT D3) 2,000 UNITS TABLET PO SCH (09:00)
[2018-03-11] MEDS: DOCUSATE SODIUM 100 MG CAPSULE PO SCH ×2 (09:00→20:36)
[2018-03-11] MEDS: AmLODIPine BESYLATE 10 MG TABLET PO SCH (09:00)
[2018-03-11] MEDS: HydrALAZINE HCL 20 MG/ML VIAL IVP PRN (11:25)
[2018-03-11 12:00] VITALS: BP 128/74
[2018-03-11 16:00] VITALS: BP 149/69
[2018-03-11] MEDS: ATORVASTATIN CALCIUM 20 MG TABLET PO SCH (20:35)
[2018-03-11] MEDS: POTASSIUM CHLORIDE 20 MEQ ER TABLET PO PRN (22:52)
[2018-03-12] VITALS (7 sets, daily range): BP systolic 141–165; BP diastolic 73–88
[2018-03-12] MEDS: HydrALAZINE HCL 20 MG/ML VIAL IVP PRN ×2 (00:09→17:56)
[2018-03-12] MEDS: PANTOPRAZOLE SODIUM 40 MG DR TABLET PO SCH (08:55)
[2018-03-12] MEDS: AmLODIPine BESYLATE 10 MG TABLET PO SCH (08:55)
[2018-03-12] MEDS: CHOLECALCIFEROL (VIT D3) 2,000 UNITS TABLET PO SCH (08:55)
[2018-03-12] MEDS: DOCUSATE SODIUM 100 MG CAPSULE PO SCH ×2 (08:56→21:55)
[2018-03-12] MEDS: VALSARTAN 160 MG TABLET PO SCH (08:56)
[2018-03-12] MEDS: ATORVASTATIN CALCIUM 20 MG TABLET PO SCH (21:55)
[2018-03-13 05:25] VITALS: BP 149/85
[2018-03-13 07:28] VITALS: BP 143/75
[2018-03-13 07:35] LABS: BASOPHILS % (AUTO) 0.4 % (0.0-2.0); EOSINOPHILS % (AUTO) 3.2 % (1.0-6.0); HEMATOCRIT 35.4 % (36-46); HEMOGLOBIN 11.1 g/dL (12.0-16.0); LYMPHOCYTES # (AUTO) 1.7 K/uL (1.0-4.8); LYMPHOCYTES % (AUTO) 25.6 % (22.0-44.0); MEAN CORPUSCULAR HEMOGLOBIN 21.2 pg (26.0-34.0); MEAN CORPUSCULAR HGB CONC 31.4 G/dL (31.0-37.0); MEAN CORPUSCULAR VOLUME 68 fL (80-100); MONOCYTES # (AUTO) 0.5 K/uL (0.1-1.0); MONOCYTES % (AUTO) 7.5 % (2.0-9.0); NEUTROPHILS # (AUTO) 4.1 K/uL (1.8-7.7); NEUTROPHILS % (AUTO) 63.3 % (40.0-70.0); PLATELET COUNT (AUTO) 163 K/uL (150-450); RED BLOOD CELL COUNT(AUTO) 5.24 MIL/uL (4.00-5.20); RED CELL DISTRIBUTION WIDTH 14.4 % (11.5-14.5)
[2018-03-13 07:42] LABS: ANION GAP 6 mmol/L (8-16); CALCIUM, TOTAL 10.1 mg/dL (8.8-10.5); CARBON DIOXIDE 26 mmol/L (22-29); CHLORIDE 110 mmol/L (98-107); CREATININE 0.73 mg/dL (0.60-1.30); GLUCOSE,RANDOM 107 mg/dL (70-110); POTASSIUM 3.4 mmol/L (3.5-5.1); SODIUM SERUM 142 mmol/L (136-145); UREA NITROGEN, BLOOD 18 mg/dL (7-18)
[2018-03-13 07:43] LABS: GLOMERULAR FILTR. RATE CALC > 60 mL/min (>60)
[2018-03-13] MEDS: DOCUSATE SODIUM 100 MG CAPSULE PO SCH (08:36)
[2018-03-13] MEDS: CHOLECALCIFEROL (VIT D3) 2,000 UNITS TABLET PO SCH (08:36)
[2018-03-13] MEDS: VALSARTAN 160 MG TABLET PO SCH (08:36)
[2018-03-13] MEDS: AmLODIPine BESYLATE 10 MG TABLET PO SCH (08:36)
[2018-03-13] MEDS: PANTOPRAZOLE SODIUM 40 MG DR TABLET PO SCH (08:36)
[2018-03-13] MEDS: POTASSIUM CHLORIDE 20 MEQ ER TABLET PO PRN (08:36)
[2018-03-13 10:54] VITALS: BP 150/84
[2018-03-13] MEDS: HydrALAZINE HCL 20 MG/ML VIAL IVP PRN (11:28)
[2018-03-13] MEDS ORDERED: DOCU100C34 PO (15:06)
[2018-03-13 15:08] LABS: BASOPHILS % (AUTO) 0.2 % (0.0-2.0); EOSINOPHILS % (AUTO) 1.9 % (1.0-6.0); HEMATOCRIT 36.4 % (36-46); HEMOGLOBIN 11.3 g/dL (12.0-16.0); LYMPHOCYTES # (AUTO) 1.3 K/uL (1.0-4.8); LYMPHOCYTES % (AUTO) 13.6 % (22.0-44.0); MEAN CORPUSCULAR HEMOGLOBIN 20.7 pg (26.0-34.0); MEAN CORPUSCULAR VOLUME 67 fL (80-100); MONOCYTES # (AUTO) 0.7 K/uL (0.1-1.0); MONOCYTES % (AUTO) 7.1 % (2.0-9.0); NEUTROPHILS # (AUTO) 7.3 K/uL (1.8-7.7); NEUTROPHILS % (AUTO) 77.2 % (40.0-70.0); PLATELET COUNT (AUTO) 168 K/uL (150-450); RED BLOOD CELL COUNT(AUTO) 5.45 MIL/uL (4.00-5.20); RED CELL DISTRIBUTION WIDTH 14.3 % (11.5-14.5)
[2018-03-13] MEDS ORDERED: BISA10SU8 PR (15:13)
[2018-03-13 15:20] LABS: ALANINE AMINOTRANSFERASE 46 U/L (12-78); ALBUMIN 3.4 g/dL (3.4-5.0); ALKALINE PHOSPHATASE 71 U/L (46-116); ANION GAP 11 mmol/L (8-16); ASPARTATE AMINOTRANSFERASE 35 U/L (15-37); BILIRUBIN,TOTAL 0.6 mg/dL (0.1-1.0); CALCIUM, TOTAL 10.1 mg/dL (8.8-10.5); CARBON DIOXIDE 23 mmol/L (22-29); CHLORIDE 107 mmol/L (98-107); CREATININE 0.89 mg/dL (0.60-1.30); GLUCOSE,RANDOM 117 mg/dL (70-110); POTASSIUM 3.6 mmol/L (3.5-5.1); SODIUM SERUM 141 mmol/L (136-145); TOTAL PROTEIN, SERUM 7.9 g/dL (6.4-8.2); UREA NITROGEN, BLOOD 15 mg/dL (7-18)
[2018-03-13 15:21] LABS: GLOMERULAR FILTR. RATE CALC > 60 mL/min (>60)
[2018-03-13 15:49] VITALS: BP 137/88
== END 2018-03-13 17:40 | DRG 545 ==
LOC: EMS 12:06 → ICU 14:38 → 5S 03-12 21:15
PROVIDERS: ADMIT Internal Medicine; ATTEND Internal Medicine
DX: E85.4 Organ-limited amyloidosis (principal); I61.9 Nontraumatic intracerebral hemorrhage, unspecified; I16.1 Hypertensive emergency; R47.01 Aphasia; I68.0 Cerebral amyloid angiopathy; E78.5 Hyperlipidemia, unspecified; Z86.73 Personal history of transient ischemic attack (TIA), and cerebral infarction without residual deficits; E78.00 Pure hypercholesterolemia, unspecified; E83.52 Hypercalcemia; I11.9 Hypertensive heart disease without heart failure; S00.03XA Contusion of scalp, initial encounter; X58.XXXA Exposure to other specified factors, initial encounter; Y93.89 Activity, other specified; Y92.89 Other specified places as the place of occurrence of the external cause; Y99.8 Other external cause status; Z79.82 Long term (current) use of aspirin; Z79.899 Other long term (current) drug therapy; D64.9 Anemia, unspecified
CPT/HCPCS: 70553; 72125; 72170; 84132; 86850; 86900; 86901; 87081; 92507; 92610; 93005; 93970; 96365; 96366; 97116; 97162; 97166; 97530; 97535; 99291; A9585; G0378; J0360; J3480; J7030; J7050

== ENCOUNTER 2018-05-22 08:41 | Emergency (ER) | payer MEDICARE, OTHER ==
[~2018-05-22] VITALS: Ht 154.9 cm; Wt 61.4 kg
[~2018-05-22 08:41] MED LIST changes: +BISA10SU8 PR; +DOCU100C34 PO
[2018-05-22] MEDS ORDERED: ACETAMINOPHEN 500 MG TABLET PO ONE (09:00)
[2018-05-22 09:34] LABS: BASOPHILS % (AUTO) 0.2 % (0.0-2.0); EOSINOPHILS % (AUTO) 2.2 % (1.0-6.0); HEMATOCRIT 33.2 % (36-46); HEMOGLOBIN 10.2 g/dL (12.0-16.0); LYMPHOCYTES # (AUTO) 0.6 K/uL (1.0-4.8); LYMPHOCYTES % (AUTO) 9.9 % (22.0-44.0); MEAN CORPUSCULAR HEMOGLOBIN 20.8 pg (26.0-34.0); MEAN CORPUSCULAR HGB CONC 30.8 G/dL (31.0-37.0); MEAN CORPUSCULAR VOLUME 68 fL (80-100); MONOCYTES # (AUTO) 0.6 K/uL (0.1-1.0); MONOCYTES % (AUTO) 9.7 % (2.0-9.0); NEUTROPHILS # (AUTO) 4.9 K/uL (1.8-7.7); PLATELET COUNT (AUTO) 166 K/uL (150-450); RED BLOOD CELL COUNT(AUTO) 4.91 MIL/uL (4.00-5.20); RED CELL DISTRIBUTION WIDTH 15.7 % (11.5-14.5)
[2018-05-22 09:48] LABS: ANION GAP 10 mmol/L (8-16); CALCIUM, TOTAL 11.2 mg/dL (8.8-10.5); CARBON DIOXIDE 26 mmol/L (22-29); CHLORIDE 105 mmol/L (98-107); CREATININE 0.83 mg/dL (0.60-1.30); GLUCOSE,RANDOM 140 mg/dL (70-110); POTASSIUM 3.7 mmol/L (3.5-5.1); SODIUM SERUM 141 mmol/L (136-145); UREA NITROGEN, BLOOD 8 mg/dL (7-18)
[2018-05-22 09:50] LABS: GLOMERULAR FILTR. RATE CALC > 60 mL/min (>60)
[2018-05-22 09:53] LABS: ALANINE AMINOTRANSFERASE 20 U/L (12-78); ALBUMIN 3.6 g/dL (3.4-5.0); ALKALINE PHOSPHATASE 82 U/L (46-116); ASPARTATE AMINOTRANSFERASE 17 U/L (15-37); BILIRUBIN,TOTAL 0.3 mg/dL (0.1-1.0); CREATINE KINASE, TOTAL ONLY 28 U/L (26-192); TOTAL PROTEIN, SERUM 7.6 g/dL (6.4-8.2)
[2018-05-22 09:59] LABS: B-TYPE NATRIURETIC PEPTIDE 19 pg/mL (0-100)
[2018-05-22 12:06] LABS: APPEARANCE,URINE CLOUDY (CLEAR); BILIRUBIN,URINE NEGATIVE (NEGATIVE); GLUCOSE, URINE (UA) NEGATIVE (NEGATIVE); KETONES,URINE TRACE mg/dL (NEGATIVE); LEUKOCYTE ESTERASE ,URINE NEGATIVE (NEGATIVE); NITRATE,URINE NEGATIVE (NEGATIVE); OCCULT BLOOD,URINE TRACE (NEGATIVE); PH,URINE 7.5 (5.0-8.0); PROTEIN,URINE NEGATIVE (NEGATIVE); UROBILINOGEN,URINE 0.2 mg/dL (<=1.0)
[2018-05-22 12:20] VITALS: BP 111/86
[2018-05-22 12:27] LABS: BACTERIA,URINE Moderate /HPF (None Seen); RBC,URINE 0-2 /HPF (0-2); SQUAMOUS EPITHELIAL CELL,UR Few /LPF (None Seen); WBC,URINE 0-2 /HPF (0-5)
== END 2018-05-22 12:23 | disposition home or self-care (01) ==
LOC: EMS 08:41
DX: S00.83XA Contusion of other part of head, initial encounter (principal); F03.90 Unspecified dementia, unspecified severity, without behavioral disturbance, psychotic disturbance, mood disturbance, and anxiety; I10 Essential (primary) hypertension; Z91.011 Allergy to milk products; E78.00 Pure hypercholesterolemia, unspecified; Z79.82 Long term (current) use of aspirin; W01.0XXA Fall on same level from slipping, tripping and stumbling without subsequent striking against object, initial encounter; Y93.01 Activity, walking, marching and hiking; Y92.89 Other specified places as the place of occurrence of the external cause; Y99.8 Other external cause status
CPT/HCPCS: 70450; 87086; 93005